=== PATIENT | male | born 1990 | race Caucasian/White ===

== ENCOUNTER 2021-10-24 11:15 | Emergency (ER) | payer BC ==
[2021-10-24 11:41] VITALS: BP 133/82; PULSE 64; TEMP 98.1; BMI 27.1
[2021-10-24] MEDS ORDERED: SODIUM CHLORIDE 0.9% 500 ML INFUS.BAG IV ONE (11:54)
[2021-10-24] MEDS ORDERED: MECLIZINE HCL 25 MG TABLET (FP) PO ONE (11:54)
[2021-10-24] MEDS ORDERED: MECLIZINE HCL 25 MG TABLET (FP) ONE (12:04)
[2021-10-24 12:54] LABS: ALBUMIN 4.6 g/dl (3.4-5.0); BILIRUBIN,TOTAL 0.4 mg/dl (0.2-1); CALCIUM 9.7 mg/dl (8.5-10); CREATININE 1.1 mg/dl (0.55-1.3); TOT PROT 7.5 g/dl (6.4-8.2)
[2021-10-24 14:02] LABS: BASO % 0.5 % (0-2.0); EOS % 0.2 % (0-4.5); HEMATOCRIT 39.4 % (35.4-49); HEMOGLOBIN 13.7 GM/dL (11.7-16.9); LYMPH % 16.5 % (8-40); MCHC 34.8 g/dl (32.0-35.9); MEAN CELL VOLUME 86.3 fl (80-96); MEAN PLT VOLUME 9.4 fl (7.5-11.1); MONO % 4.6 % (3.8-10.2); NEUT % 78.2 % (42.8-82.8); PLATELET COUNT 222 10^3/uL (134-434); RBC 4.56 M/mm3 (4.00-5.60); RDW 13.4 % (11.9-15.9); WHITE BLOOD COUNT 8.8 K/mm3 (4.0-10.0)
== END 2021-10-24 14:43 | disposition home or self-care (01) ==
LOC: FER 11:15
DX: R42 Dizziness and giddiness (principal)
CPT/HCPCS: 36415; 80053; 85025; 93005; 99284-25